=== PATIENT | female | born 1980 | race Hispanic/Latino ===

== ENCOUNTER 2017-03-13 14:07 | Emergency (ER) | payer SELFPAY ==
[2017-03-13 14:08] VITALS: BMI 20.1
[2017-03-13 14:29] VITALS: PULSE 96; RESP 20; TEMP 98; O2SAT 98
--- NOTE | 2017-03-13 14:42 | C.PDOC ---
History Of Present Illness 37 year old female was brought to the emergency department by EMS with complaints of "mild buttock pain." Patient admits to being a long history of heroin abuse and is currently using "two bundles a day." She denies any injury, fall, or other complaints at this time. Time Seen by Provider: 03/13/17 14:37 Chief Complaint (Nursing): Substance Abuse History Per: Patient History/Exam Limitations: no limitations Onset/Duration Of Symptoms: Hrs Current Symptoms Are (Timing): Still Present Suicide/Self Injury Attempted (Context): None Involuntary Hold By: None Recent travel outside of the [place]: No Additional History Per: EMS Past Medical History Reviewed: Historical Data, Nursing Documentation, Vital Signs Vital Signs: Last Vital Signs Temp 98 F 03/13/17 14:24 Pulse 96 H 03/13/17 14:24 Resp 20 03/13/17 14:24 BP 104/65 03/13/17 14:48 Pulse Ox 98 03/13/17 15:19 - Medical History PMH: Asthma, Depression - [facility] Procedures COMBINED ALCOHOL AND DRUG DETOXIFICATION (09/14/14) DRUG DETOXIFICATION (07/24/14) INJECT/INFUSE NEC (11/24/14) MAGNETIC RESONANCE IMAGING OF SPINAL CANAL (06/21/13) Family History: States: Unknown Family Hx - Social History Hx Tobacco Use: Yes Hx Alcohol Use: No Hx Substance Use: Yes - Immunization History Hx Tetanus Toxoid Vaccination: No Hx Influenza Vaccination: No Hx Pneumococcal Vaccination: No Review Of Systems Constitutional: Negative for: Fever, Chills Cardiovascular: Negative for: Chest Pain, Palpitations Respiratory: Negative for: Cough, Shortness of Breath Gastrointestinal: Positive for: Rectal Pain. Negative for: Nausea, Vomiting, Abdominal Pain, Diarrhea Physical Exam - Physical Exam Appears: Non-toxic, No Acute Distress Skin: Warm, Dry Head: Atraumatic Eye(s): bilateral: Normal Inspection, PERRL, EOMI Oral Mucosa: Moist Teeth: Other (Scant, poor dentition ) Neck: Supple Chest: Symmetrical Cardiovascular: Rhythm Regular Respiratory: Normal Breath Sounds, No Wheezing Gastrointestinal/Abdominal: Soft, No Tenderness, No Distention, No Guarding, No Rebound Rectal: No Tenderness, Other (Exam performed chaperoned by Faye. No wounds, no rash ) Extremity: Other (Track reid on bilateral bilateral arms without abscess ) Neurological/Psych: Oriented x3 ED Course And Treatment O2 Sat by Pulse Oximetry: 98 (room air) Medical Decision Making Medical Decision Making: ? R buttock pain, but no wound/chaparoned with Kassidy- Crozer sleeping but arousable to noxious stimulus, using 2 bundles heroine daily no withdrawal now d/c to street and opt f/u. Disposition Doctor Will See Patient In The: Office Counseled Patient/Family Regarding: Studies Performed, Diagnosis - Disposition Referrals: Alcoholics Anonymous [Outside] [facility] [Outside] [facility] [Outside] [facility] [Outside] Disposition: HOME/ ROUTINE Disposition Time: 14:41 Condition: GOOD Additional Instructions: continue to seek detox programs. Call [facility] and our Crisis Evaluators for availability. Instructions: Narcotic Abuse (ED) Forms: [facility] (Romanian) - Clinical Impression Clinical Impression: Drug abuse and dependence, Bilateral buttock pain - Scribe Statement The provider has reviewed the documentation as recorded by the Scribe Arlene Maxwell All medical record entries made by the Scribe were at my direction and personally dictated by me. I have reviewed the chart and agree that the record accurately reflects my personal performance of the history, physical exam, medical decision making, and the department course for this patient. I have also personally directed, reviewed, and agree with the discharge instructions and disposition.
[2017-03-13 14:48] VITALS: BP 104/65
== END 2017-03-13 16:16 | disposition home or self-care (01) ==
LOC: C.ER 14:07
DX: M54.89 Other dorsalgia (principal); F11.20 Opioid dependence, uncomplicated

== ENCOUNTER 2017-05-10 18:45 | Emergency (ER) | payer MEDICAID, OTHER ==
[2017-05-10 18:46] VITALS: BMI 20.1
[2017-05-10 20:20] VITALS: BP 115/76; PULSE 87; RESP 16; TEMP 97.9; O2SAT 98
[2017-05-10] MEDS ORDERED: Sodium Chloride 0.9% 1,000 ML IV ONE (22:18)
--- NOTE | 2017-05-10 23:22 | C.PDOC ---
History Of Present Illness Pt c/o right middle finger infection that is spreading up the hand. She is IVDU and admits injecting into the proximal right middle finger. Time Seen by Provider: 05/10/17 22:06 Chief Complaint (Nursing): Abnormal Skin Integrity History Per: Patient Onset/Duration Of Symptoms: Days (about 1 week) Current Symptoms Are (Timing): Worse Location Of Injury: Right: Hand (Middle finger) Quality Of Symptoms: Painful, Swollen Severity: Moderate Additional History Per: Prior Records Past Medical History Reviewed: Historical Data, Nursing Documentation, Vital Signs Vital Signs: Last Vital Signs Temp 97.9 F 05/10/17 20:17 Pulse 87 05/10/17 20:17 Resp 16 05/10/17 20:17 BP 115/76 05/10/17 20:17 Pulse Ox 98 05/10/17 20:17 - Medical History PMH: Asthma, Depression - [facility] Procedures COMBINED ALCOHOL AND DRUG DETOXIFICATION (09/14/14) DRUG DETOXIFICATION (07/24/14) INJECT/INFUSE NEC (11/24/14) MAGNETIC RESONANCE IMAGING OF SPINAL CANAL (06/21/13) Family History: States: Unknown Family Hx - Social History Hx Tobacco Use: Yes Hx Alcohol Use: No Hx Substance Use: Yes (IVDA Heroin) - Immunization History Hx Tetanus Toxoid Vaccination: No Hx Influenza Vaccination: No Hx Pneumococcal Vaccination: No Review Of Systems Except As Marked, All Systems Reviewed And Found Negative. Constitutional: Negative for: Fever Cardiovascular: Negative for: Chest Pain Respiratory: Negative for: Shortness of Breath Gastrointestinal: Negative for: Vomiting, Abdominal Pain Musculoskeletal: Positive for: Hand Pain (right). Negative for: Neck Pain Skin: Positive for: Rash Neurological: Negative for: Weakness, Numbness Physical Exam - Physical Exam Appears: Non-toxic, No Acute Distress Skin: Warm, Dry Head: Atraumatic Eye(s): bilateral: PERRL Neck: Normal ROM, Supple Cardiovascular: Rhythm Regular Respiratory: Normal Breath Sounds, No Accessory Muscle Use Gastrointestinal/Abdominal: Soft, No Tenderness Extremity: Capillary Refill (wnl), Swelling (Proximal right middle with erythma extending to hand), Other (Track reid on b/l upper extremities) Pulses: Right Radial: Normal Neurological/Psych: Oriented x3, Normal Motor, Normal Sensation ED Course And Treatment O2 Sat by Pulse Oximetry: 98 Pulse Ox Interpretation: Normal - Other Rad Right middle finger x-rays X-Ray: Interpreted by Me, Viewed By Me Interpretation: No fx or FB. Progress Note: I ordered labs and IV for pt, but I was informed by the nurse that the pt refused then walked out during evaluation. Disposition - Disposition Disposition: ELOPEMENT - ER ONLY Disposition Time: 23:15 Condition: UNKNOWN - Clinical Impression Clinical Impression: Patient left before treatment completed, Abscess of right middle finger, Cellulitis of right hand, IVDU (intravenous drug user)
--- NOTE | 2017-05-11 09:21 | RAD ---
PROCEDURE: Right middle finger radiographs. HISTORY: Pain/swelling/redness, IVDU COMPARISON: None. TECHNIQUE: AP radiograph of the right hand, as well as spot oblique and lateral images of right middle finger were obtained. FINDINGS: RIGHT MIDDLE FINGER: Right middle finger bony anatomy is normal, without fracture of focal lesion. JOINTS: Normal. SOFT TISSUES: Marked soft tissue swelling 3rd digit over proximal phalanx and dorsal hand -metacarpal level. OTHER FINDINGS: None. IMPRESSION: No periosteal reaction or cortical destruction seen to suggest osteomyelitis. Dorsal soft tissue swellings consistent with cellulitis. No gas-forming cellulitis
== END 2017-05-10 23:10 | disposition left against medical advice (07) ==
LOC: C.ER 18:45
DX: L02.511 Cutaneous abscess of right hand (principal); L03.113 Cellulitis of right upper limb

== ENCOUNTER 2018-01-03 23:25 | Inpatient (IN) | payer MEDICAID, OTHER ==
[2018-01-03 23:25] VITALS: BMI 20.1
--- NOTE | 2018-01-04 00:28 | C.PDOC ---
History Of Present Illness 37 year old female with a known history of heroin and cocaine addiction presents to the emergency department after being accepted as a pre-screen to the detox program. Patient reports she last used intravenous drugs prior to arrival. Patient has no acute complaints at this time. Chief Complaint (Nursing): Substance Abuse History Per: Patient History/Exam Limitations: no limitations Onset/Duration Of Symptoms: Hrs Modifying Factor(s): Cocaine, Other (heroin) Past Medical History Reviewed: Historical Data, Nursing Documentation, Vital Signs Vital Signs: Last Vital Signs Temp 97.5 F L 01/04/18 04:21 Pulse 71 01/04/18 04:21 Resp 16 01/04/18 04:21 BP 97/59 L 01/04/18 04:21 Pulse Ox 96 01/04/18 04:45 - Medical History PMH: Asthma, Depression Denies: Anxiety, Bipolar Disorder, HIV, HTN, Personality Disorder, Chronic Kidney Disease, Schizophrenia, Seizures, Sexually Transmitted Disease Surgical History: No Surg Hx - [facility] Procedures COMBINED ALCOHOL AND DRUG DETOXIFICATION (09/14/14) DRUG DETOXIFICATION (07/24/14) INJECT/INFUSE NEC (11/24/14) MAGNETIC RESONANCE IMAGING OF SPINAL CANAL (06/21/13) Family History: States: No Known Family Hx - Social History Hx Tobacco Use: Yes Hx Alcohol Use: No Hx Substance Use: Yes (IVDA Heroin) - Immunization History Hx Tetanus Toxoid Vaccination: No Hx Influenza Vaccination: No Hx Pneumococcal Vaccination: No Review Of Systems Constitutional: Negative for: Fever, Chills Cardiovascular: Negative for: Chest Pain Respiratory: Negative for: Shortness of Breath Gastrointestinal: Negative for: Abdominal Pain Neurological: Positive for: Altered Mental Status Physical Exam - Physical Exam Appears: Non-toxic, No Acute Distress, Unkempt (poor general hygiene), Other ( appears much older than stated age) Skin: Warm, Dry, Other (tracks in bilateral antecubital fossas, no evident signs of infection) Head: Atraumatic, Normacephalic Eye(s): bilateral: Normal Inspection Nose: Normal Neck: Supple Cardiovascular: Rhythm Regular Respiratory: Normal Breath Sounds Gastrointestinal/Abdominal: Normal Exam, Soft, No Tenderness, No Mass, No Guarding, No Rebound Pulses: Left Dorsalis Pedis: Normal, Right Dorsalis Pedis: Normal Neurological/Psych: Normal Speech, Normal Cognition ED Course And Treatment - Laboratory Results Result Diagrams: 01/04/18 00:55 01/04/18 00:55 O2 Sat by Pulse Oximetry: 96 (RA) Pulse Ox Interpretation: Normal Medical Decision Making Medical Decision Making: Plan: Alcohol Serum CMP Drug Screen CBC Urinalysis Impression: Drug dependency Disposition - Disposition Disposition: HOSPITALIZED Disposition Time: 05:06 Condition: FAIR - Clinical Impression Clinical Impression: Drug abuse, Opioid dependence - Scribe Statement The provider has reviewed the documentation as recorded by the Scribe (Jony Velazquez) Provider Attestation: All medical record entries made by the Scribe were at my direction and personally dictated by me. I have reviewed the chart and agree that the record accurately reflects my personal performance of the history, physical exam, medical decision making, and the department course for this patient. I have also personally directed, reviewed, and agree with the discharge instructions and disposition.
[2018-01-04 00:58] LABS: BASO # 0.1 K/uL (0.0-0.2); BASO % 0.8 % (0.0-2.0); EOS # 0.2 K/uL (0.0-0.7); EOS % 2.7 % (0.0-4.0); HEMOGLOBIN 12.9 g/dL (11.0-16.0); LYMPH # 2.7 K/uL (1.0-4.3); LYMPH % 35.3 % (20.0-40.0); MEAN CELL VOLUME 81.3 fL (81.0-99.0); MEAN CORPUSCULAR HEMOGLOBIN 28.2 pg (27.0-31.0); MEAN CORPUSCULAR HGB CONC 34.7 g/dL (33.0-37.0); MEAN PLATELET VOLUME 7.1 fL (7.2-11.7); MONO # 0.5 K/uL (0.0-0.8); MONO % 6.4 % (0.0-10.0); NEUT # 4.2 K/uL (1.8-7.0); NEUT % 54.8 % (50.0-75.0); RBC 4.58 Mil/uL (3.80-5.20); RED CELL DISTRIBUTION WIDTH 15.1 % (11.5-14.5); WHITE BLOOD COUNT 7.7 K/uL (4.8-10.8)
[2018-01-04 01:13] LABS: ALB/GLOB RATIO 1.1 (1.0-2.1); ALBUMIN 4.3 g/dL (3.5-5.0); ALT/SGPT 7 U/L (9-52); AST/SGOT 16 U/L (14-36); BLOOD UREA NITROGEN 10 mg/dL (7-17); CALCIUM 9.1 mg/dl (8.6-10.4); GFR AFRICAN-AMERICAN > 60; GFR NON-AFRICAN AMERICAN > 60
[2018-01-04 01:21] LABS: SQUAMOUS EPITHIAL 1 /hpf (0-5); URINE BACTERIA FEW (<OCC); URINE BILIRUBIN 1+ (NEGATIVE); URINE BLOOD NEGATIVE (NEGATIVE); URINE CLARITY Hazy (Clear); URINE COLOR Amber (YELLOW); URINE GLUCOSE (UA) NORMAL (Normal); URINE LEUKOCYTE ESTERASE TRACE Leu/uL (Negative); URINE PROTEIN 1+ mg/dL (NEGATIVE)
[2018-01-04 01:49] LABS: BARBITURATES, UR NEGATIVE (NEGATIVE); BENZODIAZEPINES, UR NEGATIVE (NEGATIVE); PHENCYCLIDINE, UR NEGATIVE (NEGATIVE)
[2018-01-04 02:26] LABS: OPIATES, UR POSITIVE (NEGATIVE)
[2018-01-04] MEDS ORDERED: Aluminum Hydroxide/Magnesium Hydroxide Susp (30 mL) PO PRN (10:43)
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
--- NOTE | 2018-01-04 19:45 | PCM.BM ---
<Alvarado Dang - Last Filed: 01/04/18 19:43> Treatment Plan Problems - Problems identified on initial assessmt potential for opiate withdrawal Date Initiated: 01/04/18 Time Initiated: 19:44 Status: Active Treatment assets and liabiliti Patient Assests: ADL independent, negotiates basic needs Patient Liabilities: live alone, poor support system, substance abuse - Milieu Protocol Maintain good personal hygiene: daily Encourage regular showers, daily Remind patient to perform daily oral care, daily Assist patient to perform ADL's Conduct patient checks and document Observation sheet: Q15 minutes Maintain personal safety: every shift Educate patient to report safety concerns to staff, every shift Monitor environment for contraband/sharps Medication safety: Monitor for expected outcome, potential side effects: every shift, Assess barriers to learning: every shift, Assess readiness for medication education: every shift Milieu Narrative: Taper with methadone Gabapentin for augmentation if needed As needed medications All risks, benefits and alternatives of the meds discussed, and the pt agreed and understood. Attend groups and activities Supportive therapy and psychoeducation [place] for abstinence CBT for relapse prevention Encourage MAT Refer to rehab or IOP, and self-help groups Smoking cessation with [place] Nicotine patch if needed 34 min Discharge/Continuing Care - Treatment Team Participation Patient/Family/SO Statement: Taper with methadone Gabapentin for augmentation if needed As needed medications All risks, benefits and alternatives of the meds discussed, and the pt agreed and understood. Attend groups and activities Supportive therapy and psychoeducation [place] for abstinence CBT for relapse prevention Encourage MAT Refer to rehab or IOP, and self-help groups Smoking cessation with [place] Nicotine patch if needed 34 min <Mirna Zendejas - Last Filed: 01/06/18 10:11> - Diagnosis (1) Opioid dependence Status: Acute Interventions: 01/06/18 10:11 * Assess 7x/week regarding severity of withdrawal * Educate regarding risks, benefits, side effects and alternatives of medications * Use Motivational Interviewing for abstinence * Use CBT for relapse prevention * Medication management for withdrawal symptoms * Encourage medication assisted treatment *
--- NOTE | 2018-01-05 12:37 | PCM.PYCHPN ---
Psychiatric Progress Note - Psychiatric Progress Note Patient seen today, length of contact: 20 min Patient Chief Complaint: "I am not well" Problems Identified/Issues Discussed: The pt is seen, chart reviewed, case discussed with staff. The pt is compliant with medications and reports no side-effects. Symptoms are NOT improving yet, but needs more time to stabilize. She just got 30 and 25 mg methadone in 2 days Support and psychoeducation given. On an other note, she began displaying odd and unusual bhv; disrobing, screaming and she also voiced SI to the nurses. She contracts for safety but she cristian be transferred to She understood her rights and where she is going and consented. Medication Change: Yes (detox changes daily) Medical Record Reviewed: Yes Mental Status Examination - Cognitive Function Orientation: Person, Place, Situation, Time Memory: Impaired Attention: Poor Concentration: Poor Association: Loose Fund of Knowledge: Poor - Mood Mood: Anxious, Other (angry) - Affect Affect: Constricted - Speech Speech: Slurred - Formal Thought Process Formal Thought Process: Loosening of associations - Suicidal Ideation Suicidal Ideation: Yes Plan: NO plan or intention - Homicidal Ideation Homicidal Ideation: No Goal/Treatment Plan - Goal/Treatment Plan Need for Continued Stay: Discharge may exacerbated symptoms, Severe functional impairment Progress Toward Problem(s) and Goals/Treatment Plan: Taper with methadone Gabapentin for augmentation if needed Start seroquel As needed medications All risks, benefits and alternatives of the meds discussed, and the pt agreed and understood. Attend groups and activities Supportive therapy and psychoeducation [place] for abstinence CBT for relapse prevention Encourage MAT Refer to rehab or IOP, and self-help groups Smoking cessation with [place] Nicotine patch if needed
--- NOTE | 2018-01-06 10:11 | PCM.PYCHPN ---
Psychiatric Progress Note - Psychiatric Progress Note Patient seen today, length of contact: 15 min Patient Chief Complaint: "Just tired" Problems Identified/Issues Discussed: The pt is seen, chart reviewed, case discussed with staff. The pt is compliant and has no SE Still withdrawing and extra meds given On seroquel Not cooperative much, spends time in bed Denies SI but guarded Support given Safety plan discussed Medication Change: Yes (detox changes daily) Medical Record Reviewed: Yes Mental Status Examination - Cognitive Function Orientation: Person, Place, Situation, Time Memory: Impaired Attention: Poor Concentration: Poor Association: Loose Fund of Knowledge: Poor - Mood Mood: Anxious, Other (angry) - Affect Affect: Constricted - Speech Speech: Slurred - Formal Thought Process Formal Thought Process: Loosening of associations - Suicidal Ideation Suicidal Ideation: Yes - Homicidal Ideation Homicidal Ideation: No Goal/Treatment Plan - Goal/Treatment Plan Need for Continued Stay: Discharge may exacerbated symptoms, Severe functional impairment Progress Toward Problem(s) and Goals/Treatment Plan: Taper with methadone Gabapentin for augmentation if needed Start seroquel As needed medications All risks, benefits and alternatives of the meds discussed, and the pt agreed and understood. Attend groups and activities Supportive therapy and psychoeducation [place] for abstinence CBT for relapse prevention Encourage MAT Refer to rehab or IOP, and self-help groups Smoking cessation with [place] Nicotine patch if needed
--- NOTE | 2018-01-07 10:40 | PCM.PYCHPN ---
Psychiatric Progress Note - Psychiatric Progress Note Patient seen today, length of contact: 16 min Patient Chief Complaint: "I still have pain" Problems Identified/Issues Discussed: The pt is seen, chart reviewed, case discussed with staff. The pt is compliant and has no SE She looks better and talks more but still bedbound, in position and disorganized She has lesser wdw sxs now Support given, psychoed given Wants rehab She will also get more seroquel due to mood and insomnia Medication Change: Yes (detox changes daily) Medical Record Reviewed: Yes Mental Status Examination - Cognitive Function Orientation: Person, Place, Situation, Time Memory: Impaired Attention: Poor Concentration: Poor Association: Loose Fund of Knowledge: Poor - Mood Mood: Anxious, Other (angry) - Affect Affect: Constricted - Speech Speech: Slurred - Formal Thought Process Formal Thought Process: Loosening of associations - Suicidal Ideation Suicidal Ideation: Yes - Homicidal Ideation Homicidal Ideation: No Goal/Treatment Plan - Goal/Treatment Plan Need for Continued Stay: Discharge may exacerbated symptoms, Severe functional impairment Progress Toward Problem(s) and Goals/Treatment Plan: Taper with methadone Gabapentin for augmentation if needed Start seroquel As needed medications All risks, benefits and alternatives of the meds discussed, and the pt agreed and understood. Attend groups and activities Supportive therapy and psychoeducation [place] for abstinence CBT for relapse prevention Encourage MAT Refer to rehab or IOP, and self-help groups Smoking cessation with [place] Nicotine patch if needed
--- NOTE | 2018-01-08 08:09 | PCM.PYCHPN ---
Psychiatric Progress Note - Psychiatric Progress Note Patient seen today, length of contact: 16 min Patient Chief Complaint: i am feeling little better Problems Identified/Issues Discussed: Patient seen and evaluated, chart reviewed and discussed with the nurse. Today patient reports some improvement in her irritability, anxiety and agitation. She reports some improvement in the racing of thoughts and flight of ideas. She still reports depressed mood and feelings of hopelessness. She appears somewhat delusional with paranoid. She is taking that medication and denies any side effects. Symptoms are improving but needs more time for stabilization. Supportive therapy and psychoeducation were given. Medication Change: Yes (detox changes daily, start Haldol) Medical Record Reviewed: Yes Mental Status Examination - Cognitive Function Orientation: Person, Place, Situation, Time Memory: Intact Attention: WNL Concentration: Poor Association: WNL Fund of Knowledge: Poor - Mood Mood: Anxious, Other (angry) - Affect Affect: Constricted - Speech Speech: Soft - Formal Thought Process Formal Thought Process: Loosening of associations - Suicidal Ideation Suicidal Ideation: No - Homicidal Ideation Homicidal Ideation: No Goal/Treatment Plan - Goal/Treatment Plan Need for Continued Stay: Discharge may exacerbated symptoms, Severe functional impairment Progress Toward Problem(s) and Goals/Treatment Plan: Taper with methadone Gabapentin for augmentation if needed Seroquel Start Haldol 5 mg by mouth twice a day As needed medications All risks, benefits and alternatives of the meds discussed, and the pt agreed and understood. Attend groups and activities Supportive therapy and psychoeducation [place] for abstinence CBT for relapse prevention Encourage MAT Refer to rehab or IOP, and self-help groups Smoking cessation with [place] Nicotine patch if needed - Smoking Cessation Smoking Cessation Initiated: No
--- NOTE | 2018-01-09 17:59 | PCM.PYCHPN ---
Psychiatric Progress Note - Psychiatric Progress Note Patient seen today, length of contact: 16 min Patient Chief Complaint: i am feeling little better Problems Identified/Issues Discussed: Patient seen and evaluated, chart reviewed and discussed with the nurse. Today patient reports some improvement in her irritability, anxiety and agitation. She reports some improvement in the racing of thoughts and flight of ideas. She still reports depressed mood and feelings of hopelessness. She appears somewhat delusional with paranoid. She is taking that medication and denies any side effects. Symptoms are improving but needs more time for stabilization. Supportive therapy and psychoeducation were given. Medication Change: Yes (detox changes daily, start Haldol) Medical Record Reviewed: Yes Mental Status Examination - Cognitive Function Orientation: Person, Place, Situation, Time Memory: Intact Attention: WNL Concentration: Poor Association: WNL Fund of Knowledge: Poor - Mood Mood: Anxious, Other (angry) - Affect Affect: Constricted - Speech Speech: Soft - Formal Thought Process Formal Thought Process: Loosening of associations - Suicidal Ideation Suicidal Ideation: No - Homicidal Ideation Homicidal Ideation: No Goal/Treatment Plan - Goal/Treatment Plan Need for Continued Stay: Discharge may exacerbated symptoms, Severe functional impairment Progress Toward Problem(s) and Goals/Treatment Plan: Taper with methadone Gabapentin for augmentation if needed Seroquel Start Haldol 5 mg by mouth twice a day As needed medications All risks, benefits and alternatives of the meds discussed, and the pt agreed and understood. Attend groups and activities Supportive therapy and psychoeducation [place] for abstinence CBT for relapse prevention Encourage MAT Refer to rehab or IOP, and self-help groups Smoking cessation with [place] Nicotine patch if needed
--- NOTE | 2018-01-10 10:24 | PCM.PYCHPN ---
Psychiatric Progress Note - Psychiatric Progress Note Patient seen today, length of contact: 16 min Patient Chief Complaint: i am feeling little better Problems Identified/Issues Discussed: Patient seen and evaluated, chart reviewed and discussed with the nurse. She appears more organized today. She reports some improvement in her irritability, anxiety and agitation. She reports some improvement in her depressed mood and sleep. She is taking that medication and denies any side effects. Symptoms are improving but needs more time for stabilization. Supportive therapy and psychoeducation were given. Medication Change: Yes (detox changes daily, start Haldol) Medical Record Reviewed: Yes Mental Status Examination - Cognitive Function Orientation: Person, Place, Situation, Time Memory: Intact Attention: WNL Concentration: Poor Association: WNL Fund of Knowledge: Poor - Mood Mood: Anxious, Other (angry) - Affect Affect: Constricted - Speech Speech: Soft - Formal Thought Process Formal Thought Process: Loosening of associations - Suicidal Ideation Suicidal Ideation: No - Homicidal Ideation Homicidal Ideation: No Goal/Treatment Plan - Goal/Treatment Plan Need for Continued Stay: Discharge may exacerbated symptoms, Severe functional impairment Progress Toward Problem(s) and Goals/Treatment Plan: Taper with methadone Gabapentin for augmentation if needed Seroquel Haldol 5 mg by mouth twice a day As needed medications All risks, benefits and alternatives of the meds discussed, and the pt agreed and understood. Attend groups and activities Supportive therapy and psychoeducation [place] for abstinence CBT for relapse prevention Encourage MAT Refer to rehab or IOP, and self-help groups Smoking cessation with [place] Nicotine patch if needed
[2018-01-11 09:14] VITALS: O2SAT 96
--- NOTE | 2018-01-11 14:01 | PCM.PYCHPN ---
Psychiatric Progress Note - Psychiatric Progress Note Patient seen today, length of contact: 16 min Patient Chief Complaint: "I am better" Problems Identified/Issues Discussed: Patient seen and evaluated, chart reviewed and discussed with nurse. The patient is compliant with medications and reports no side effects. Symptoms are improving and reports sleeping and eating well. Over the weekend, the patients affect has improved. Patient is less irritable. However, sometimes remains isolative in her room. Patient continues to work with the social worker clinical. However, today she said she is ready to go but had no plans. Symptoms are improving but he needs more time for stabilization. Supportive therapy and psychoeducation were given. Medication Change: No Medical Record Reviewed: Yes Mental Status Examination - Cognitive Function Orientation: Person, Place, Situation, Time Memory: Intact Attention: WNL Concentration: WNL Association: WNL Fund of Knowledge: Poor - Mood Mood: Anxious, Other (angry) - Affect Affect: Constricted - Speech Speech: Soft - Formal Thought Process Formal Thought Process: No Impairment - Suicidal Ideation Suicidal Ideation: No - Homicidal Ideation Homicidal Ideation: No Goal/Treatment Plan - Goal/Treatment Plan Need for Continued Stay: Discharge may exacerbated symptoms, Severe functional impairment Progress Toward Problem(s) and Goals/Treatment Plan: Taper with methadone ended Gabapentin for augmentation if needed Continue seroquel As needed medications All risks, benefits and alternatives of the meds discussed, and the pt agreed and understood. Attend groups and activities Supportive therapy and psychoeducation [place] for abstinence CBT for relapse prevention Encourage MAT Refer to rehab or IOP, and self-help groups Smoking cessation with [place] Nicotine patch if needed
[2018-01-12 00:09] VITALS: BP 126/78; PULSE 97; RESP 19; TEMP 98.2
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
== END 2018-01-12 12:00 | disposition home or self-care (01) | DRG 745 ==
LOC: C.ER 23:25 → C.7D 01-04 04:06 → C.5E 01-05 11:57
PROVIDERS: ADMIT Psychiatry & Neurology Psychiatry; ATTEND Psychiatry & Neurology Psychiatry
PROC: HZ2ZZZZ Detoxification Services for Substance Abuse Treatment (ICD-10-PCS; principal; 2018-01-04)
DX: F11.23 Opioid dependence with withdrawal (principal); F14.90 Cocaine use, unspecified, uncomplicated; F17.210 Nicotine dependence, cigarettes, uncomplicated; F32.9 Major depressive disorder, single episode, unspecified; F41.9 Anxiety disorder, unspecified; G47.00 Insomnia, unspecified; J45.909 Unspecified asthma, uncomplicated; Z74.01 Bed confinement status